=== PATIENT | male | born 1985 | race Caucasian/White ===

== ENCOUNTER 2018-05-19 09:12 | Emergency (ER) | payer SELFPAY ==
[2018-05-19 09:19] VITALS: BP 134/65; PULSE 70; RESP 16; TEMP 36.5; O2SAT 100; BMI 25.8
--- NOTE | 2018-05-19 09:51 | ED.SYNCOPE ---
HPI - Syncope General Chief Complaint: Syncope Stated Complaint: fell off front porch this morning. Time Seen by Provider: 05/19/18 09:33 Source: patient Mode of arrival: ambulatory Limitations: no limitations History of Present Illness HPI narrative: Patient is a 32-year-old male who presents after syncopal episode. He says he was on his way to work he walked out of his house and passed out. He landed on the left side of his face he says he was out for 15 min. He had no warning sign, no chest pain heart palpitations lightheadedness or dizziness. He does have a history of epilepsy, and he is pretty sure he did not have a seizure. He says usually he can tell when he had 1 he bites his tongue and has muscle soreness he does not have either of the symptoms. MD complaint: collapsed Duration of episode: 15 -: minutes(s) Related Data Previous Rx's Medication Instructions Recorded phenytoin sodium extended 200 mg PO BID #120 cap 12/08/17 [Dilantin Extended] phenytoin sodium extended 100 mg PO SEE INSTRUCTIONS 14 Days 12/12/17 [Dilantin Extended] #0 cap hydrocodone-acetaminophen [[place]] 1 tab PO Q4HP PRN #8 tab 02/08/18 Allergies Allergy/AdvReac Type Severity Reaction Status Date / Time prochlorperazine Allergy Intermediate Verified 05/19/18 09:19 [From COMPAZINE] SEAFOOD Allergy Severe ANAPHYLAXIS Uncoded 05/19/18 09:19 Review of Systems Review of Systems All systems reviewed & are unremarkable except as noted in HPI and below Constitutional Denies chills, Denies fever(s), Denies lethargy and Denies weakness Eyes Denies change in vision, Denies eye discharge, Denies irritation and Denies loss of vision ENT Ears, Nose, Mouth, and Throat: Reports as per HPI, Reports facial pain (Left eye) and Denies nose pain Cardiovascular Reports as per HPI, Denies chest pain, Denies chest pain at rest, Reports syncope, Denies dyspnea and Denies dyspnea on exertion Respiratory Denies cough, Denies dyspnea, Denies dyspnea on exertion and Denies wheezing Gastrointestinal Gastrointestinal: Denies abdominal pain, Denies change in bowel habits, Denies diarrhea, Denies nausea and Denies vomiting Musculoskeletal Denies back pain, Denies myalgias, Denies deformity and Denies numbness Integumentary/Breasts Reports lesions (Abrasion left side face right hand right knee) Neurologic Reports syncope, Denies loss of vision, Denies numbness and Denies weakness Comments: History of seizure Allergic/Immunologic Denies wheezing [facility] Medical History Epilepsy (Acute) Exam Initial Vital Signs Initial Vital Signs: Vital Signs Temperature 97.7 F 05/19/18 09:19 Pulse Rate 70 05/19/18 09:19 Respiratory Rate 16 05/19/18 09:19 Blood Pressure 134/65 H 05/19/18 09:19 Pulse Oximetry 100 05/19/18 09:19 Const General: cooperative and well developed Nutritional Appearance: well nourished Orientation: alert, awake, oriented x3 and not confused HENMT Head: normal to inspection and normocephalic Face and sinus: abrasion on the left (zygomatic arch no step offs.) Chest Chest: normal inspection of the chest Resp Effort & Inspection: normal respiratory effort Auscultation: clear to auscultation bilaterally, no rales, no rhonchi and no wheezes Cardio Rate: regular rate Rhythm: regular rhythm Heart Sounds: S1 normal and S2 normal GI Inspection: normal to inspection Palpation: soft, No guarding and No tender Back/Spine/Pelvis Back: normal to inspection and No back tenderness Cervical Spine: normal cervical lordosis and cervical ROM normal Thoracic/Lumbar Spine: thoracic and lumbar spine normal to inspection Sacroiliac Joints: nontender Skin Lesions: lesion noted (Left side of face right hand, right) Neuro General: alert, oriented x3, gait normal and no focal motor deficits Speech: speech normal Extrem General: normal to inspection and full ROM Right upper extremity: normal to inspection and full ROM Left upper extremity: normal to inspection and full ROM Right lower extremity: normal to inspection and full ROM Left lower extremity: normal to inspection and full ROM Course Orders Ordered: ED Orders 05/19/18 09:27 EKG-12 Lead Routine 05/19/18 09:55 Basic Metabolic Panel Stat Complete Blood Count AUTO DIFF Stat Discontinued Medications Sodium Chloride (Normal Saline 0.9%) 1,000 mls @ 1,000 mls/hr IV BOLUS ONE Stop: 05/19/18 10:45 Last Infusion: 05/19/18 11:17 Dose: 0 mls/hr Admin: 05/19/18 10:02 Dose: 1,000 mls/hr Vital Signs - 8 hr 05/19/18 09:19 05/19/18 11:03 05/19/18 11:34 Temperature 97.7 F Pulse Rate 70 52 L 56 L Respiratory Rate 16 21 19 Blood Pressure 134/65 H Blood Pressure [Right Arm] 111/59 L 120/61 Pulse Oximetry 100 100 100 05/19/18 11:57 Temperature Pulse Rate 62 Respiratory Rate 15 Blood Pressure 120/61 Blood Pressure [Right Arm] Pulse Oximetry 100 MDM - Syncope Lab Data Attestation: I reviewed the patient's lab results. Result diagrams: 05/19/18 09:55 05/19/18 09:55 Lab Results 05/19/18 05/19/18 Range/Units 09:55 09:55 WBC 8.1 (4.5-11.0) X10^3/uL RBC 3.76 L (4.5-5.9) X10^6/uL Hgb 12.6 L (13.5-17.5) g/dL Hct 36.3 L (41-53) % MCV 96.5 (80-100) fL MCH 33.4 (26-34) PG MCHC 34.6 (30-36) % RDW 12.9 (11.6-14.8) % Plt Count 259 (150-400) X10^3/uL Neut % (Auto) 69.2 (50-75) % Lymph % (Auto) 18.1 L (25-40) % [place] % (Auto) 8.6 (3-14) % Eos % (Auto) 3.4 (2-4) % Baso % (Auto) 0.7 (0-2) % Neut # (Auto) 5600 (6167-5191) /uL Sodium 140 (137-145) mmol/L Potassium 4.3 (3.4-5.1) mmol/L Chloride 103 (98-107) mmol/L Carbon Dioxide 30 (22-32) mmol/L BUN 15 (9-20) mg/dL Creatinine 0.70 (0.66-1.25) mg/dL Estimated GFR > 60.0 (>60) mL/min BUN/Creatinine Ratio 21.4 (6-22) Glucose 93 (70-100) mg/dL Calcium 9.7 (8.4-10.2) mg/dL ECG Data Attestation: I personally reviewed and interpreted this ECG as follows: Prior ECG tracings: available for review Interpretation: Normal sinus rhythm rate of [address] changes normal interval similar to prior even improved MDM Narrative Medical decision making narrative: The patient is feeling much better. He would like a work note for the day. Discharge Plan Departure Patient Disposition: Home, Self-Care Clinical Impression: Vasovagal syncope Discharge Date/Time: 05/19/18 11:57 Interventions: ED Discharge Assessment Last Done: 05/19/18 11:57 Instructions: Fainting Activity Restrictions/Additional Instructions: *You have been diagnosed with fainting *What to do: Increase fluid intake including water, Gatorade etc *Continue to take medications as directed *Follow up with your primary care provider in 2-3 days *Return to ER if you should have any new, worsening or concerning symptoms Prescriptions: No Action phenytoin sodium extended [Dilantin Extended] 100 MG capsule 200 mg PO BID Qty: 120 RF: 11 phenytoin sodium extended [Dilantin Extended] 100 MG capsule 100 mg PO SEE INSTRUCTIONS 14 Days Qty: 0 RF: 0 hydrocodone-acetaminophen [[place]] 5 MG/325 MG tablet 1 tab PO Q4HP PRNQty: 8 RF: 0 Referrals: Matthew Harris MD [Physician] - Stand Alone Forms: Work/School Restrictions
--- NOTE | 2018-05-19 09:58 | ED_ITS ---
HPI - Syncope General Chief Complaint: Syncope Stated Complaint: fell off front porch this morning. Time Seen by Provider: 05/19/18 09:33 Source: patient Mode of arrival: ambulatory Limitations: no limitations History of Present Illness HPI narrative: Patient is a 32-year-old male who presents after syncopal episode. He says he was on his way to work he walked out of his house and passed out. He landed on the left side of his face he says he was out for 15 min. He had no warning sign, no chest pain heart palpitations lightheadedness or dizziness. He does have a history of epilepsy, and he is pretty sure he did not have a seizure. He says usually he can tell when he had 1 he bites his tongue and has muscle soreness he does not have either of the symptoms. MD complaint: collapsed Duration of episode: 15 -: minutes(s) Related Data Previous Rx's Medication Instructions Recorded phenytoin sodium extended 200 mg PO BID #120 cap 12/08/17 [Dilantin Extended] phenytoin sodium extended 100 mg PO SEE INSTRUCTIONS 14 Days 12/12/17 [Dilantin Extended] #0 cap hydrocodone-acetaminophen [[place]] 1 tab PO Q4HP PRN #8 tab 02/08/18 Allergies Allergy/AdvReac Type Severity Reaction Status Date / Time prochlorperazine Allergy Intermediate Verified 05/19/18 09:19 [From COMPAZINE] SEAFOOD Allergy Severe ANAPHYLAXIS Uncoded 05/19/18 09:19 Review of Systems Review of Systems All systems reviewed & are unremarkable except as noted in HPI and below Constitutional Denies chills, Denies fever(s), Denies lethargy and Denies weakness Eyes Denies change in vision, Denies eye discharge, Denies irritation and Denies loss of vision ENT Ears, Nose, Mouth, and Throat: Reports as per HPI, Reports facial pain (Left eye ) and Denies nose pain Cardiovascular Reports as per HPI, Denies chest pain, Denies chest pain at rest, Reports syncope, Denies dyspnea and Denies dyspnea on exertion Respiratory Denies cough, Denies dyspnea, Denies dyspnea on exertion and Denies wheezing Gastrointestinal Gastrointestinal: Denies abdominal pain, Denies change in bowel habits, Denies diarrhea, Denies nausea and Denies vomiting Musculoskeletal Denies back pain, Denies myalgias, Denies deformity and Denies numbness Integumentary/Breasts Reports lesions (Abrasion left side face right hand right knee) Neurologic Reports syncope, Denies loss of vision, Denies numbness and Denies weakness Comments: History of seizure Allergic/Immunologic Denies wheezing [facility] Medical History Epilepsy (Acute) Exam Initial Vital Signs Initial Vital Signs: Vital Signs Temperature 97.7 F 05/19/18 09:19 Pulse Rate 70 05/19/18 09:19 Respiratory Rate 16 05/19/18 09:19 Blood Pressure 134/65 H 05/19/18 09:19 Pulse Oximetry 100 05/19/18 09:19 Const General: cooperative and well developed Nutritional Appearance: well nourished Orientation: alert, awake, oriented x3 and not confused HENMT Head: normal to inspection and normocephalic Face and sinus: abrasion on the left (zygomatic arch no step offs.) Chest Chest: normal inspection of the chest Resp Effort & Inspection: normal respiratory effort Auscultation: clear to auscultation bilaterally, no rales, no rhonchi and no wheezes Cardio Rate: regular rate Rhythm: regular rhythm Heart Sounds: S1 normal and S2 normal GI Inspection: normal to inspection Palpation: soft, No guarding and No tender Back/Spine/Pelvis Back: normal to inspection and No back tenderness Cervical Spine: normal cervical lordosis and cervical ROM normal Thoracic/Lumbar Spine: thoracic and lumbar spine normal to inspection Sacroiliac Joints: nontender Skin Lesions: lesion noted (Left side of face right hand, right) Neuro General: alert, oriented x3, gait normal and no focal motor deficits Speech: speech normal Extrem General: normal to inspection and full ROM Right upper extremity: normal to inspection and full ROM Left upper extremity: normal to inspection and full ROM Right lower extremity: normal to inspection and full ROM Left lower extremity: normal to inspection and full ROM Course Orders Ordered: ED Orders 05/19/18 09:27 EKG-12 Lead Routine 05/19/18 09:55 Basic Metabolic Panel Stat Complete Blood Count AUTO DIFF Stat Discontinued Medications Sodium Chloride (Normal Saline 0.9%) 1,000 mls @ 1,000 mls/hr IV BOLUS ONE Stop: 05/19/18 10:45 Last Infusion: 05/19/18 11:17 Dose: 0 mls/hr Admin: 05/19/18 10:02 Dose: 1,000 mls/hr Vital Signs - 8 hr 05/19/18 09:19 05/19/18 11:03 05/19/18 11:34 Temperature 97.7 F Pulse Rate 70 52 L 56 L Respiratory Rate 16 21 19 Blood Pressure 134/65 H Blood Pressure [Right Arm] 111/59 L 120/61 Pulse Oximetry 100 100 100 05/19/18 11:57 Temperature Pulse Rate 62 Respiratory Rate 15 Blood Pressure 120/61 Blood Pressure [Right Arm] Pulse Oximetry 100 MDM - Syncope Lab Data Attestation: I reviewed the patient's lab results. Result diagrams: 05/19/18 09:55 05/19/18 09:55 Lab Results 05/19/18 05/19/18 Range/Units 09:55 09:55 WBC 8.1 (4.5-11.0) X10^3/uL RBC 3.76 L (4.5-5.9) X10^6/uL Hgb 12.6 L (13.5-17.5) g/dL Hct 36.3 L (41-53) % MCV 96.5 (80-100) fL MCH 33.4 (26-34) PG MCHC 34.6 (30-36) % RDW 12.9 (11.6-14.8) % Plt Count 259 (150-400) X10^3/uL Neut % (Auto) 69.2 (50-75) % Lymph % (Auto) 18.1 L (25-40) % [place] % (Auto) 8.6 (3-14) % Eos % (Auto) 3.4 (2-4) % Baso % (Auto) 0.7 (0-2) % Neut # (Auto) 5600 (3374-3988) /uL Sodium 140 (137-145) mmol/L Potassium 4.3 (3.4-5.1) mmol/L Chloride 103 (98-107) mmol/L Carbon Dioxide 30 (22-32) mmol/L BUN 15 (9-20) mg/dL Creatinine 0.70 (0.66-1.25) mg/dL Estimated GFR > 60.0 (>60) mL/min BUN/Creatinine Ratio 21.4 (6-22) Glucose 93 (70-100) mg/dL Calcium 9.7 (8.4-10.2) mg/dL ECG Data Attestation: I personally reviewed and interpreted this ECG as follows: Prior ECG tracings: available for review Interpretation: Normal sinus rhythm rate of [address] changes normal interval similar to prior even improved MDM Narrative Medical decision making narrative: The patient is feeling much better. He would like a work note for the day. Discharge Plan Departure Patient Disposition: Home, Self-Care Clinical Impression: Vasovagal syncope Discharge Date/Time: 05/19/18 11:57 Interventions: ED Discharge Assessment Last Done: 05/19/18 11:57 Instructions: Fainting Activity Restrictions/Additional Instructions: *You have been diagnosed with fainting *What to do: Increase fluid intake including water, Gatorade etc *Continue to take medications as directed *Follow up with your primary care provider in 2-3 days *Return to ER if you should have any new, worsening or concerning symptoms Prescriptions: No Action phenytoin sodium extended [Dilantin Extended] 100 MG capsule 200 mg PO BID Qty: 120 RF: 11 phenytoin sodium extended [Dilantin Extended] 100 MG capsule 100 mg PO SEE INSTRUCTIONS 14 Days Qty: 0 RF: 0 hydrocodone-acetaminophen [[place]] 5 MG/325 MG tablet 1 tab PO Q4HP PRNQty: 8 RF: 0 Referrals: Matthew Harris MD [Physician] - Stand Alone Forms: Work/School Restrictions
[2018-05-19] MEDS: SODIUM CHLORIDE 0.9% 1,000 ML 1000 ML IV (10:02)
[2018-05-19 10:03] LABS: Add Manual Diff / Slide Review NO; Basophils Percent Auto 0.7 % (0-2); Eosinophils Percent Auto 3.4 % (2-4); Hematocrit 36.3 % (41-53); Hemoglobin 12.6 g/dL (13.5-17.5); Lymphocytes Percent Auto 18.1 % (25-40); Mean Corpuscular HGB Conc 34.6 % (30-36); Mean Corpuscular Hemoglobin 33.4 PG (26-34); Mean Corpuscular Volume 96.5 fL (80-100); Monocytes Percent Auto 8.6 % (3-14); Neutrophils Absolute Auto 5600 /uL (3000-5900); Neutrophils Percent Auto 69.2 % (50-75); Platelet Count 259 X10^3/uL (150-400); Red Blood Cell Count 3.76 X10^6/uL (4.5-5.9); Red Cell Distribution Width 12.9 % (11.6-14.8); White Blood Cell Count 8.1 X10^3/uL (4.5-11.0)
[2018-05-19 10:12] LABS: BUN Creatinine Ratio 21.4 (6-22); Blood Urea Nitrogen 15 mg/dL (9-20); Calcium 9.7 mg/dL (8.4-10.2); Carbon Dioxide 30 mmol/L (22-32); Chloride 103 mmol/L (98-107); Estimated Glomerular Filt Rate > 60.0 mL/min (>60); Glucose 93 mg/dL (70-100); HEMOLYSIS < 15 (0-50); Potassium 4.3 mmol/L (3.4-5.1); Sodium 140 mmol/L (137-145)
[2018-05-19 11:03] VITALS: BP 111/59; PULSE 52; RESP 21; O2SAT 100
[2018-05-19 11:34] VITALS: BP 120/61; PULSE 56; RESP 19; O2SAT 100
[2018-05-19 11:57] VITALS: BP 120/61; PULSE 62; RESP 15; O2SAT 100
== END 2018-05-19 11:57 | disposition home or self-care (01) ==
PROVIDERS: Emergency Provider Emergency Medicine
DX: R55 Syncope and collapse (principal)
CPT/HCPCS: 36591; 80048; 85025; 93005; 96360; 99283; 99284

== ENCOUNTER 2018-10-06 18:19 | Emergency (ER) | payer SELFPAY ==
[2018-10-06 18:28] VITALS: BP 124/71; PULSE 89; RESP 14; TEMP 36.9; O2SAT 97; BMI 24.3
--- NOTE | 2018-10-06 18:28 | ED.RECABL ---
HPI - Recheck/Abnormal Lab/Rx <Glo Tyler PA-C - Last Filed: 10/06/18 22:18> General Chief Complaint: Recheck/Abnormal Lab/Rx Stated Complaint: NEEDS MEDICATION REFILL Time Seen by Provider: 10/06/18 18:27 Source: patient Mode of arrival: ambulatory Limitations: no limitations History of Present Illness HPI narrative: this 32-year-old male who suffers from epilepsy comes in for refill his Dilantin. He has been on this for many years with good therapeutic results. he only has 1 dose left. He called his neurologist for follow-up appointment and found out that he had retired in the spring. He does not have a PCP in now is concerned about running out of medication. He is feeling well without any complaints and is here requesting a medication refill. Related Data Previous Rx's Medication Instructions Recorded phenytoin sodium extended 200 mg PO BID #120 cap 12/08/17 [Dilantin Extended] phenytoin sodium extended 100 mg PO SEE INSTRUCTIONS 14 Days 12/12/17 [Dilantin Extended] #0 cap hydrocodone-acetaminophen [[place]] 1 tab PO Q4HP PRN #8 tab 02/08/18 phenytoin sodium extended 200 mg PO Q12H #120 cap 10/06/18 [Dilantin Extended] Allergies Allergy/AdvReac Type Severity Reaction Status Date / Time prochlorperazine Allergy Intermediate Verified 05/19/18 09:19 [From COMPAZINE] SEAFOOD Allergy Severe ANAPHYLAXIS Uncoded 05/19/18 09:19 Review of Systems <Glo Tyler PA-C - Last Filed: 10/06/18 22:18> Review of Systems All systems reviewed & are unremarkable except as noted in HPI and below PFSH <Glo Tyler PA-C - Last Filed: 10/06/18 22:18> Comment: Moderate EtOH Exam <Glo Tyler PA-C - Last Filed: 10/06/18 22:18> Narrative Exam Narrative: GENERAL APPEARANCE: Patient sitting comfortably, in no distress. LUNGS: Clear to auscultation bilaterally. HEART: Rate and rhythm regular without murmur, normal S1 and S2, no S3 or S4. Initial Vital Signs Initial Vital Signs: Vital Signs Temperature 98.5 F 10/06/18 18:28 Pulse Rate 89 10/06/18 18:28 Respiratory Rate 14 10/06/18 18:28 Blood Pressure 124/71 10/06/18 18:28 Pulse Oximetry 97 10/06/18 18:28 <Jaron Bernardo DO - Last Filed: 10/06/18 23:15> Initial Vital Signs Initial Vital Signs: Vital Signs Temperature 98.5 F 10/06/18 18:28 Pulse Rate 89 10/06/18 18:28 Respiratory Rate 14 10/06/18 18:28 Blood Pressure 124/71 10/06/18 18:28 Pulse Oximetry 97 10/06/18 18:28 Course <Glo Tyler PA-C - Last Filed: 10/06/18 22:18> Vital Signs - 8 hr 10/06/18 18:28 Temperature 98.5 F Pulse Rate 89 Respiratory Rate 14 Blood Pressure 124/71 Pulse Oximetry 97 <Jaron Bernardo DO - Last Filed: 10/06/18 23:15> Vital Signs - 8 hr 10/06/18 18:28 Temperature 98.5 F Pulse Rate 89 Respiratory Rate 14 Blood Pressure 124/71 Pulse Oximetry 97 Discharge Plan Departure Patient Disposition: Home Clinical Impression: Epilepsy Discharge Date/Time: 10/06/18 18:45 Interventions: ED Discharge Assessment Last Done: 10/06/18 19:28 Activity Restrictions/Additional Instructions: Please return as you need to. I have sent in a month supply of your medication, which should give you time to get set up with insurance and find a new primary care provider who can refill your medication and refer you to a new neurologist. You can call the hospital Resource Center if you need help with this (start with your employer/ human resources). If you do need an urgent appointment /follow-up in the interim [facility] clinic in [address], is taking new patients quickly and also will do telemedicine visit online (i.e. if you need another refill). Prescriptions: New phenytoin sodium extended [Dilantin Extended] 100 mg capsule 200 mg PO Q12H Qty: 120 RF: 0 No Action phenytoin sodium extended [Dilantin Extended] 100 MG capsule 200 mg PO BID Qty: 120 RF: 11 phenytoin sodium extended [Dilantin Extended] 100 MG capsule 100 mg PO SEE INSTRUCTIONS 14 Days Qty: 0 RF: 0 hydrocodone-acetaminophen [[place]] 5 MG/325 MG tablet 1 tab PO Q4HP PRNQty: 8 RF: 0 <Jaron Bernardo DO - Last Filed: 10/06/18 23:15> Coskvng ED Attending Collin Attestation: I was available for consultation during this patient's emergency department encounter
--- NOTE | 2018-10-06 19:23 | PC.NURSE ---
med refill for antiseizure
== END 2018-10-06 18:45 | disposition home or self-care (01) ==
PROVIDERS: Emergency Provider Internal Medicine
DX: Z76.0 Encounter for issue of repeat prescription (principal)
CPT/HCPCS: 99281; 99283

== ENCOUNTER 2019-04-16 15:16 | Emergency (ER) | payer SELFPAY ==
[2019-04-16 15:20] VITALS: BP 142/75; PULSE 95; RESP 14; TEMP 36.7; O2SAT 98
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
--- NOTE | 2019-04-16 15:53 | DI.RAD.S_ITS ---
PROCEDURE: XR FOOT RT MIN 3V INDICATIONS: pain 1st metatarsal/toe, 2nd toe trauma TECHNIQUE: 3 views of the foot were acquired. COMPARISON: None. FINDINGS: Bones: No fractures or dislocations. No suspicious bony lesions. Soft tissues: No tibiotalar joint effusion. Achilles tendon appears normal. IMPRESSION: No acute fracture. No osseous lesion. If symptoms or clinical suspicion for pathology persists, repeat plain films, or advanced imaging (CT, bone scan, or MRI) may be helpful for further assessment. Dictated by: Fantasma Pimentel M.D. on 04/16/2019 at 15:38 Approved by: Fantasma Pimentel M.D. on 04/16/2019 at 15:39
[2019-04-16] MEDS: TET,DIPH,PERTUSS(ACELL),VAC/PF 0.5 ML SYRINGE IM (15:56)
[2019-04-16 17:37] VITALS: PULSE 86; O2SAT 100
[2019-04-16 18:25] VITALS: BP 131/71; PULSE 77; O2SAT 100
== END 2019-04-16 18:35 | disposition home or self-care (01) ==
PROVIDERS: Emergency Provider Emergency Medicine; PCP Student in an Organized Health Care Education/Training Program
DX: S00.83XA Contusion of other part of head, initial encounter (principal); S90.30XA Contusion of unspecified foot, initial encounter; W18.30XA Fall on same level, unspecified, initial encounter; Y04.2XXA Assault by strike against or bumped into by another person, initial encounter; Z23 Encounter for immunization
CPT/HCPCS: 70450; 70486; 73630; 90471; 99283; 99284; 90715

== ENCOUNTER 2020-06-01 21:01 | Emergency (ER) | payer SELFPAY ==
[2020-06-01 21:04] VITALS: BP 140/61; PULSE 70; RESP 15; TEMP 36.7; O2SAT 99
[2020-06-01 21:40] VITALS: PULSE 64; O2SAT 99
[2020-06-01] MEDS: diphenhydrAMINE 50 MG/ML VIAL 25 MG IV (21:45)
[2020-06-01 22:00] VITALS: BP 115/58; PULSE 57; PULSE 69; O2SAT 100; O2SAT 99
[2020-06-01 22:30] VITALS: BP 122/78; PULSE 63; O2SAT 100
[2020-06-01 23:00] VITALS: BP 122/78; PULSE 64; RESP 16; O2SAT 98
--- NOTE | 2020-06-02 02:59 | ED_ITS ---
HPI - Allergic Reaction General Chief complaint: Allergic Reaction Stated complaint: hives Time Seen by Provider: 06/01/20 21:04 Source: patient and family Mode of arrival: Ambulatory Limitations: no limitations History of Present Illness HPI narrative: 34M smoker presents with his father and the chief complaint of the rapid onset of a widespread itchy rash that started soon after eating fish. He has a known allergy but didn't know what he was eating. He took nothing prior to coming in. He denies swelling of tongue, lips, or throat. He has no trouble breathing or swallowing. He denies any nausea, vomiting or diarrhea. MD complaint: allergic reaction Onset (ago): minute(s) Exposure: food Symptoms: rash and itching Severity: moderate Treatment prior to arrival: none Previous Allergic Reaction History: none Related Data Previous Rx's Medication Instructions Recorded Dilantin Extended 100 mg capsule 200 mg PO BID #120 cap NS 11/16/19 epinephrine [EpiPen 2-Quintin] 0.3 mg IM Q5-15M PRN #2 each 06/01/20 prednisone 20 mg PO DAILY #5 tab 06/01/20 Allergies Allergy/AdvReac Type Severity Reaction Status Date / Time prochlorperazine Allergy Intermediate Verified 11/16/19 10:28 [From COMPAZINE] SEAFOOD Allergy Severe ANAPHYLAXIS Uncoded 11/16/19 10:28 Review of Systems Constitutional Constitutional: Denies chills, Denies fatigue, Denies fever(s), Denies frequent falls, Denies lethargy and Denies weakness Eyes Eyes: Denies change in vision, Denies eye discharge, Denies irritation and Denies loss of vision ENT Ears, Nose, Mouth, and Throat: Denies change in voice, Denies dizziness, Denies neck pain, Denies sore throat and Denies throat swelling Cardiovascular Cardiovascular: Denies chest pain, Denies irregular heart rhythm, Denies lightheadedness, Denies palpitations, Denies dyspnea, Denies dyspnea on exertion and Denies orthopnea Respiratory Respiratory: Denies cough, Denies dyspnea, Denies dyspnea on exertion and Denies wheezing Gastrointestinal Gastrointestinal: Denies abdominal pain, Denies change in bowel habits, Denies diarrhea, Denies nausea and Denies vomiting Musculoskeletal Musculoskeletal: Denies neck pain and Denies numbness Integumentary/Breasts Skin/Breast: Denies pruritus, Reports erythema, Denies rash, Reports skin swelling and Denies wounds Neurologic Neurologic: Denies behavioral changes, Denies confusion, Denies dizziness, Denies frequent falls, Denies loss of vision, Denies numbness and Denies weakness Psychiatric Psychiatric: Denies anxiety, Denies behavioral changes, Denies confusion, Denies depression, Denies homicidal ideation and Denies suicidal ideation Endocrine Endocrine: Denies fatigue, Denies flushing and Denies palpitations Hematologic/Lymphatic Hematologic/Lymphatic: Denies easy bruising Allergic/Immunologic Allergic/Immunologic: Denies urticaria, Denies throat swelling and Denies wheezing Patient History Medical History Epilepsy (Acute) Social History Smoking Status: Current every day smoker alcohol intake: never substance use type: does not use Smoking Status: Current every day smoker alcohol intake frequency: a few times a month Substance Use Type: does not use Exam Narrative Exam Narrative: GENERAL: [34] year old patient appears stated age. Well- nourished, well-developed patient, in mild distress. HEAD: Atraumatic. Normocephalic. EYES: Pupils equal round and reactive. Extraocular motions intact. No scleral icterus. No injection or drainage. ENT: No tongue, lip, face, or throat swelling. Nose without bleeding, purulent drainage. Throat without erythema, tonsillar hypertrophy or exudate. Airway patent. NECK: Trachea midline. Non tender CARDIOVASCULAR: Regular rate and rhythm without murmurs, gallops, or rubs. RESPIRATORY: Clear to auscultation. Breath sounds equal bilaterally. No wheezes, rales, or rhonchi. GASTROINTESTINAL: Abdomen soft, non-tender, nondistended. EXTREMITIES: No edema or joint tenderness. BACK: Nontender without deformity or crepitance. No flank tenderness. NEURO: AOx3. SKIN: Widespread urticaria and erythema Initial Vital Signs Initial Vital Signs: Vital Signs Temperature 98.1 F 06/01/20 21:04 Pulse Rate 70 06/01/20 21:04 Respiratory Rate 15 06/01/20 21:04 Blood Pressure 140/61 06/01/20 21:04 Pulse Oximetry 99 06/01/20 21:04 Course Course Course Narrative: near complete resolution of symptoms after above stated therapies Orders Ordered: Discontinued Medications Diphenhydramine HCl (Benadryl) 25 mg IV NOW ONE Stop: 06/01/20 21:40 Last Admin: 06/01/20 21:45 Dose: 25 mg Documented by: JAZMYN Vital Signs Vital signs: Vital Signs - 8 hr 06/01/20 21:04 06/01/20 21:40 06/01/20 22:00 Temperature 98.1 F Pulse Rate 70 64 57 L Respiratory Rate 15 Blood Pressure 140/61 115/58 L Pulse Oximetry 99 99 100 06/01/20 22:30 06/01/20 23:00 Temperature Pulse Rate 63 64 Respiratory Rate 16 Blood Pressure 122/78 122/78 Pulse Oximetry 100 98 Discharge Plan Departure Patient Disposition: Home Clinical Impression: Allergic reaction Qualifiers: Encounter type: initial encounter Qualified Code(s): T78.40XA - Allergy, unspecified, initial encounter Discharge Date/Time: 06/01/20 23:01 Instructions: DI for Hives Activity Restrictions/Additional Instructions: *You have been diagnosed with [allergic reaction with urticaria] *What to do: *Take medications as directed including over the counter benadryl and another antihistamine as well as the prednisone prescription *Follow up with your primary care provider in 2-3 days, call for an appointment. Let them know you were seen in the Emergency Department and that we ask that you be seen in follow up *Return to ER if you should have any new, worsening or concerning symptoms Prescriptions: New prednisone 20 mg tablet 20 mg PO DAILY Qty: 5 RF: 0 epinephrine [EpiPen 2-Quintin] 0.3 mg/0.3 mL auto-injector 0.3 mg IM Q5-15M PRN (Reason: anaphylaxis) Qty: 2 RF: 0 No Action phenytoin sodium extended [Dilantin Extended] 100 mg capsule 200 mg PO BID Qty: 120 RF: 11 Referrals: Favian Perez MD [Primary Care Provider] -
== END 2020-06-01 23:01 | disposition home or self-care (01) ==
PROVIDERS: Emergency Provider Emergency Medicine; PCP Student in an Organized Health Care Education/Training Program
DX: T78.40XA Allergy, unspecified, initial encounter (principal)
CPT/HCPCS: 36415; 96374; 99284; J1200

== ENCOUNTER → 2021-09-22 09:49 | Outpatient (CLI) | payer SELFPAY ==
[2021-09-22 11:19] LABS: Add Manual Diff / Slide Review NO; Basophils Absolute Auto 100 /uL (0-100); Basophils Percent Auto 1.1 % (0-2); Eosinophils Absolute Auto 600 /uL (0-450); Eosinophils Percent Auto 11.8 % (2-4); Hematocrit 40.4 % (41-53); Hemoglobin 13.7 g/dL (13.5-17.5); Lymphocytes Absolute Auto 2000 /uL (1100-4500); Lymphocytes Percent Auto 37.2 % (25-40); Mean Corpuscular HGB Conc 33.9 % (30-36); Mean Corpuscular Hemoglobin 33.1 PG (26-34); Mean Corpuscular Volume 97.8 fL (80-100); Monocytes Absolute Auto 800 /uL (0-900); Monocytes Percent Auto 14.2 % (3-14); Neutrophils Absolute Auto 2000 /uL (1500-7000); Neutrophils Percent Auto 35.7 % (50-75); Platelet Count 308 X10^3/uL (150-400); Red Blood Cell Count 4.13 X10^6/uL (4.5-5.9); Red Cell Distribution Width 13.1 % (11.6-14.8); White Blood Cell Count 5.5 X10^3/uL (4.5-11.0)
[2021-09-22 12:03] LABS: BUN Creatinine Ratio 27.7 (6-22); Blood Urea Nitrogen 18 mg/dL (9-20); Calcium 9.8 mg/dL (8.4-10.2); Carbon Dioxide 28 mmol/L (22-32); Chloride 105 mmol/L (98-107); Estimated Glomerular Filt Rate > 60.0 mL/min (>60); Glucose 99 mg/dL (70-100); HEMOLYSIS < 15 (0-50); Potassium 4.2 mmol/L (3.4-5.1); Sodium 140 mmol/L (137-145)
== END ==
PROVIDERS: PCP Student in an Organized Health Care Education/Training Program; Referring Provider Student in an Organized Health Care Education/Training Program; Visit Provider Student in an Organized Health Care Education/Training Program
DX: F17.200 Nicotine dependence, unspecified, uncomplicated (principal); G40.909 Epilepsy, unspecified, not intractable, without status epilepticus; Z79.899 Other long term (current) drug therapy
CPT/HCPCS: 36415; 80048; 85025

== ENCOUNTER → 2025-03-14 13:09 | Outpatient (CLI) | payer SELFPAY ==
[2025-03-14 14:04] LABS: Add Manual Diff / Slide Review NO; Basophils Absolute Auto 100 /uL (0-100); Basophils Percent Auto 1.2 % (0-2); Eosinophils Absolute Auto 300 /uL (0-450); Eosinophils Percent Auto 4.4 % (2-4); Hemoglobin 14.4 g/dL (13.5-17.5); Lymphocytes Absolute Auto 2000 /uL (1100-4500); Lymphocytes Percent Auto 26.4 % (25-40); Mean Corpuscular HGB Conc 34.3 % (30-36); Mean Corpuscular Hemoglobin 34.2 PG (26-34); Mean Corpuscular Volume 99.6 fL (80-100); Monocytes Absolute Auto 900 /uL (0-900); Monocytes Percent Auto 12.1 % (3-14); Neutrophils Absolute Auto 4300 /uL (1500-7000); Neutrophils Percent Auto 55.9 % (50-75); Platelet Count 317 X10^3/uL (150-400); Red Blood Cell Count 4.21 X10^6/uL (4.5-5.9); Red Cell Distribution Width 13.8 % (11.6-14.8); White Blood Cell Count 7.6 X10^3/uL (4.5-11.0)
[2025-03-14 14:21] LABS: Alanine Aminotransferase 122 IU/L (<50); Albumin 5.3 g/dL (3.5-5.0); Albumin Globulin Ratio 1.9 (1.0-2.8); Alkaline Phosphatase 87 U/L (38-126); Aspartate Aminotransferase 115 IU/L (17-59); BUN Creatinine Ratio 28.9 (6-22); Bilirubin Total 0.5 mg/dL (0.2-1.3); Blood Urea Nitrogen 22 mg/dL (9-20); Calcium 9.7 mg/dL (8.4-10.2); Carbon Dioxide 26 mmol/L (22-32); Chloride 103 mmol/L (98-107); Cholesterol 231 mg/dL (140-199); Estimated Glomerular Filt Rate > 60 mL/min (>60); Globulin 2.8 g/dL (1.7-4.1); Glucose 93 mg/dL (70-99); HEMOLYSIS 24 (0-50); Phenytoin / Dilantin 19.2 ug/mL (10-20); Potassium 4.9 mmol/L (3.4-5.1); Sodium 139 mmol/L (137-145); Total Protein 8.1 g/dL (6.3-8.2); Triglycerides 344 mg/dL (35-150)
[2025-03-14 14:26] LABS: HDL Cholesterol 110 mg/dL (40-60); LDL Cholesterol Calculated 52 mg/dL (<100)
[2025-03-14 14:49] LABS: TSH w/ Reflex to FT4 0.86 uIU/mL (0.47-4.68)
== END ==
LOC: LAB 13:10
PROVIDERS: PCP Family Medicine; Referring Provider Family Medicine; Visit Provider Family Medicine
DX: D72.10 Eosinophilia, unspecified (principal); G40.909 Epilepsy, unspecified, not intractable, without status epilepticus; Z51.81 Encounter for therapeutic drug level monitoring; Z79.899 Other long term (current) drug therapy; E66.3 Overweight; Z13.220 Encounter for screening for lipoid disorders; Z13.1 Encounter for screening for diabetes mellitus
CPT/HCPCS: 36415; 80053; 80061; 80185; 84443; 85025